=== PATIENT | female | born 1955 | race African-American/Black ===

== ENCOUNTER 2017-03-07 15:38 | Inpatient (IN) ==
[2017-03-07 17:02] LABS: Basophils % 0.4 % (0.0-0.8); Eosinophils # 0.3 10*3/uL (0.0-0.87); Eosinophils % 2.7 % (0.00-10.9); Hematocrit 43.4 VOL% (35.7-47.0); Hemoglobin 13.2 GM/DL (12.0-16.0); Immature Granulocytes % 0.4 %; Immature Granulocytes Absolute 0.04 #; Lymphocytes # 2.7 10*3/uL (1.4-4.0); Mean Corpuscular HGB Conc 30.4 GM/DL (32-36); Mean Corpuscular Hemoglobin 27 PG (27-34); Mean Corpuscular Volume 89.7 FL (87-102); Mean Platelet Volume 9.1 FL (9.6-12.0); Monocytes # 0.7 10*3/uL (0.11-0.8); Monocytes % 7.4 % (1.7-12.7); NRBC # 0.02 10*3/uL; Neutrophils # 6.1 10*3/uL (1.4-7.4); Neutrophils % 62.1 % (38.7-73.9); Platelet Count 225 T/CUMM (130-400); Red Blood Count 4.84 MC/CUMM (3.8-5.5); Red Cell Distribution Width 15.9 % (9.3-17.3); White Blood Count 9.9 T/CUMM (4-12)
[2017-03-07 17:32] LABS: Alanine Aminotransferase 18 U/L (13-56); Albumin 3.3 G/DL (3.4-5.0); Alkaline Phosphatase 66 U/L (45-117); Aspartate Amino Transferase 16 U/L (0-37); Bilirubin,Total < 0.39 MG/DL (0.2-1.0); Blood Urea Nitrogen 13 MG/DL (7-18); Calcium 8.9 MG/DL (8.5-10.1); Free T4 (Free Thyroxine) 0.89 NG/DL (0.76-1.46); Glucose 102 MG/DL (74-106); Magnesium 2.3 MG/DL (1.8-2.4); Potassium 3.9 MMOL/L (3.5-5.1); Sodium 143 MMOL/L (136-145); Total Protein 7.8 G/DL (6.4-8.3); Troponin I Only 0.024 NG/ML (0.00-0.045)
[2017-03-07] MEDS ORDERED: FUROSEMIDE 40 MG/4 ML VIAL IV STA (17:43)
[2017-03-07] MEDS ORDERED: FUROSEMIDE 40 MG/4 ML VIAL ONE (18:42)
[2017-03-07] MEDS ORDERED: FUROSEMIDE 20 MG/2 ML VIAL ONE (18:42)
[2017-03-07 18:48] LABS: Apearance,Urine CLEAR (Clear); Bacteria,Urine Occasional /HPF (Few); Bilirubin,Urine Negative (Negative); Blood, Urine Negative (Negative); Glucose,Urine (UA) Negative (Negative); Ketones,Urine Negative (Negative); Mucus,Urine Occasional /LPF (Occasional); Nitrite,Urine Negative (Negative); Protein,Urine 100 MG/DL; RBC,Urine <1 /HPF (0-4); Urine Color Yellow (Yellow); Urine Specific Gravity 1.015 (1.001-1.035); WBC,Urine 1 /HPF (0-6)
[2017-03-07 18:53] LABS: ABG HCO3 38.1 MMOL/L (20-26); ABG Oxygen Saturation 88.3 % (95-100); ABG PH 7.318 (7.35-7.45); ABG PO2 57.9 MM HG (80-95); ABG TCO2 40.4 MMOL/L (23-27); Allen Test Positive
[2017-03-07] MEDS ORDERED: hydrALAZINE 20 MG/1 ML VIAL IV PRN (19:05)
[2017-03-07] MEDS ORDERED: GLUCAGON 1 MG VIAL IM PRN (19:12)
[2017-03-07] MEDS ORDERED: DEXTROSE 50% 25 GM/50 ML VIAL IV PRN (19:12)
[2017-03-07] MEDS: LORazepam 2 MG/1 ML VIAL IV PRN (20:05)
[2017-03-07] MEDS: INSULIN REGULAR 100 UNIT/ML SUBCUT SCH (20:41)
[2017-03-07] MEDS: ENOXAPARIN 40 MG/0.4 ML SYRINGE SUBCUT SCH (20:41)
[2017-03-08] MEDS: ALBUTEROL/IPRATROPIUM 3 ML NEB RESP TX SCH ×4 (01:10→19:28)
[2017-03-08 02:49] LABS: Allen Test Positive; Pt O2 Delivery Device BIPAP
[2017-03-08 02:56] LABS: ABG Base Excess 10.1 MMOL/L (-2.5-2.5); ABG HCO3 40.4 MMOL/L (20-26); ABG Oxygen Saturation 98.1 % (95-100); ABG PO2 120.8 MM HG (80-95); ABG TCO2 43.1 MMOL/L (23-27)
[2017-03-08 02:58] LABS: ABG PCO2 89.9 MM HG (35-48)
[2017-03-08] MEDS: LORazepam 2 MG/1 ML VIAL IV PRN ×3 (03:45→21:01)
[2017-03-08 08:11] LABS: Basophils % 0.4 % (0.0-0.8); Eosinophils # 0.3 10*3/uL (0.0-0.87); Eosinophils % 3.2 % (0.00-10.9); Hematocrit 40.8 VOL% (35.7-47.0); Hemoglobin 12.2 GM/DL (12.0-16.0); Immature Granulocytes % 0.2 %; Immature Granulocytes Absolute 0.02 #; Lymphocytes # 2.6 10*3/uL (1.4-4.0); Lymphocytes % 31.6 % (21.3-54.2); Mean Corpuscular HGB Conc 29.9 GM/DL (32-36); Mean Corpuscular Hemoglobin 27 PG (27-34); Mean Corpuscular Volume 90.5 FL (87-102); Mean Platelet Volume 9.4 FL (9.6-12.0); Monocytes # 0.7 10*3/uL (0.11-0.8); Monocytes % 8.7 % (1.7-12.7); Neutrophils # 4.6 10*3/uL (1.4-7.4); Neutrophils % 55.9 % (38.7-73.9); Platelet Count 199 T/CUMM (130-400); Red Blood Count 4.51 MC/CUMM (3.8-5.5); Red Cell Distribution Width 15.9 % (9.3-17.3); White Blood Count 8.2 T/CUMM (4-12)
[2017-03-08 08:50] LABS: Albumin 3.3 G/DL (3.4-5.0); Bilirubin,Total 0.5 MG/DL (0.2-1.0); Calcium 8.5 MG/DL (8.5-10.1); Magnesium 2.2 MG/DL (1.8-2.4); Osmolality,Calculated 288.7 MOS/KG (273-304); Phosphorous 3.1 MG/DL (2.5-4.9); Potassium 3.7 MMOL/L (3.5-5.1); Total Protein 7.1 G/DL (6.4-8.3)
[2017-03-08] MEDS: INSULIN REGULAR 100 UNIT/ML SUBCUT SCH ×4 (08:50→23:44)
[2017-03-08] MEDS: FUROSEMIDE 40 MG/4 ML VIAL IV SCH (09:05)
[2017-03-08] MEDS: methylPREDNISolone SOD SUC 40 MG/1 ML VIAL IV SCH ×2 (12:19→18:49)
[2017-03-08] MEDS: cloNIDine 0.2 MG/24 HR PATCH TRANSDERM SCH (15:15)
[2017-03-08] MEDS: PANTOPRAZOLE 40 MG VIAL IV SCH (15:16)
[2017-03-08] MEDS ORDERED: TRAVOPROST 0.004% OPH SOLN 2.5 ML BOTTLE BOTH EYES SCH (21:00)
[2017-03-08] MEDS: ENOXAPARIN 40 MG/0.4 ML SYRINGE SUBCUT SCH (21:02)
[2017-03-09] MEDS: ALBUTEROL/IPRATROPIUM 3 ML NEB RESP TX SCH ×4 (00:13→20:05)
[2017-03-09] MEDS: methylPREDNISolone SOD SUC 40 MG/1 ML VIAL IV SCH ×3 (03:33→18:18)
[2017-03-09] MEDS: INSULIN REGULAR 100 UNIT/ML SUBCUT SCH ×4 (05:40→20:22)
[2017-03-09 06:05] LABS: Basophils % 0.1 % (0.0-0.8); Hematocrit 42.1 VOL% (35.7-47.0); Hemoglobin 12.8 GM/DL (12.0-16.0); Immature Granulocytes % 0.7 %; Immature Granulocytes Absolute 0.05 #; Lymphocytes # 1.3 10*3/uL (1.4-4.0); Lymphocytes % 19.4 % (21.3-54.2); Mean Corpuscular HGB Conc 30.4 GM/DL (32-36); Mean Corpuscular Hemoglobin 27 PG (27-34); Mean Corpuscular Volume 89.4 FL (87-102); Mean Platelet Volume 10.9 FL (9.6-12.0); Monocytes # 0.2 10*3/uL (0.11-0.8); Monocytes % 2.6 % (1.7-12.7); Neutrophils # 5.3 10*3/uL (1.4-7.4); Neutrophils % 77.2 % (38.7-73.9); Platelet Count 175 T/CUMM (130-400); Red Blood Count 4.71 MC/CUMM (3.8-5.5); Red Cell Distribution Width 15.8 % (9.3-17.3); White Blood Count 6.9 T/CUMM (4-12)
[2017-03-09 06:09] LABS: Alanine Aminotransferase 17 U/L (13-56); Albumin 3.2 G/DL (3.4-5.0); Alkaline Phosphatase 61 U/L (45-117); Aspartate Amino Transferase 14 U/L (0-37); Bilirubin,Total < 0.39 MG/DL (0.2-1.0); Blood Urea Nitrogen 13 MG/DL (7-18); Calcium 8.9 MG/DL (8.5-10.1); Glucose 138 MG/DL (74-106); Magnesium 2.2 MG/DL (1.8-2.4); Osmolality,Calculated 287.8 MOS/KG (273-304); Phosphorous 2.4 MG/DL (2.5-4.9); Potassium 4.2 MMOL/L (3.5-5.1); Sodium 144 MMOL/L (136-145); Total Protein 7.1 G/DL (6.4-8.3)
[2017-03-09] MEDS: LEVOTHYROXINE 100 MCG VIAL IV SCH (06:14)
[2017-03-09] MEDS: PANTOPRAZOLE 40 MG VIAL IV SCH (08:15)
[2017-03-09] MEDS: FUROSEMIDE 40 MG/4 ML VIAL IV SCH (08:19)
[2017-03-09] MEDS ORDERED: BISACODYL 5 MG TABLET PO PRN (08:24)
[2017-03-09] MEDS ORDERED: PANTOPRAZOLE 40 MG TABLET PO SCH (09:00)
[2017-03-09] MEDS ORDERED: NON-FORMULARY MEDICATION (Levetiracetam [Keppra] 1,000 MG) PO SCH (09:00)
[2017-03-09] MEDS ORDERED: LEVOTHYROXINE 175 MCG TABLET PO SCH (09:00)
[2017-03-09] MEDS: FUROSEMIDE 40 MG TABLET PO SCH (09:50)
[2017-03-09] MEDS: amLODIPine 10 MG TABLET PO SCH (09:50)
[2017-03-09] MEDS: METOPROLOL TARTRATE 25 MG TABLET PO SCH (09:50)
[2017-03-09] MEDS: POLYETHYLENE GLYCOL POWDER 17 GM PACK PO SCH (09:50)
[2017-03-09] MEDS: PARoxetine 20 MG TABLET PO SCH (09:50)
[2017-03-09] MEDS: TRAVOPROST 0.004% OPH SOLN 2.5 ML BOTTLE BOTH EYES SCH (18:24)
[2017-03-09] MEDS: ENOXAPARIN 40 MG/0.4 ML SYRINGE SUBCUT SCH (20:22)
[2017-03-09] MEDS: HALOPERIDOL 5 MG/ML AMP IV SCH (22:22)
[2017-03-10] MEDS: IBUPROFEN 400 MG TABLET PO SCH ×4 (00:28→20:44)
[2017-03-10] MEDS: ALBUTEROL/IPRATROPIUM 3 ML NEB RESP TX SCH ×4 (00:58→20:51)
[2017-03-10] MEDS: methylPREDNISolone SOD SUC 40 MG/1 ML VIAL IV SCH ×3 (02:11→18:36)
[2017-03-10 04:48] LABS: ABG Base Excess 9.7 MMOL/L (-2.5-2.5); ABG HCO3 33.5 MMOL/L (20-26); ABG Oxygen Saturation 96.7 % (95-100); ABG PH 7.294 (7.35-7.45); ABG PO2 93.1 MM HG (80-95); Allen Test Positive
[2017-03-10 04:51] LABS: ABG PCO2 82.7 MM HG (35-48)
[2017-03-10 06:12] LABS: Basophils % 0.1 % (0.0-0.8); Hematocrit 41.9 VOL% (35.7-47.0); Hemoglobin 12.8 GM/DL (12.0-16.0); Immature Granulocytes % 0.5 %; Immature Granulocytes Absolute 0.05 #; Lymphocytes # 1.3 10*3/uL (1.4-4.0); Lymphocytes % 11.4 % (21.3-54.2); Mean Corpuscular HGB Conc 30.5 GM/DL (32-36); Mean Corpuscular Hemoglobin 27 PG (27-34); Mean Corpuscular Volume 89.3 FL (87-102); Mean Platelet Volume 9.9 FL (9.6-12.0); Monocytes # 0.3 10*3/uL (0.11-0.8); Neutrophils # 9.4 10*3/uL (1.4-7.4); Platelet Count 218 T/CUMM (130-400); Red Blood Count 4.69 MC/CUMM (3.8-5.5); Red Cell Distribution Width 15.9 % (9.3-17.3); White Blood Count 11.1 T/CUMM (4-12)
[2017-03-10] MEDS: LEVOTHYROXINE 100 MCG VIAL IV SCH (06:30)
[2017-03-10 06:58] LABS: Calcium 8.7 MG/DL (8.5-10.1); Magnesium 2.4 MG/DL (1.8-2.4); Osmolality,Calculated 289.3 MOS/KG (273-304); Potassium 4.5 MMOL/L (3.5-5.1)
[2017-03-10] MEDS: THEOPHYLLINE ER (24 HR) 400 MG TABLET PO SCH (09:52)
[2017-03-10] MEDS: amLODIPine 10 MG TABLET PO SCH (09:52)
[2017-03-10] MEDS: PARoxetine 20 MG TABLET PO SCH (09:52)
[2017-03-10] MEDS: METOPROLOL TARTRATE 25 MG TABLET PO SCH (09:52)
[2017-03-10] MEDS: FUROSEMIDE 40 MG TABLET PO SCH (09:53)
[2017-03-10] MEDS: PANTOPRAZOLE 40 MG VIAL IV SCH (09:56)
[2017-03-10] MEDS: FUROSEMIDE 40 MG/4 ML VIAL IV SCH (09:57)
[2017-03-10] MEDS: INSULIN REGULAR 100 UNIT/ML SUBCUT SCH ×4 (10:03→20:43)
[2017-03-10] MEDS: TRAVOPROST 0.004% OPH SOLN 2.5 ML BOTTLE BOTH EYES SCH (18:37)
[2017-03-10] MEDS: ENOXAPARIN 40 MG/0.4 ML SYRINGE SUBCUT SCH (20:43)
[2017-03-10] MEDS: HALOPERIDOL 5 MG/ML AMP IV SCH (20:43)
[2017-03-11] MEDS: ALBUTEROL/IPRATROPIUM 3 ML NEB RESP TX SCH ×4 (01:48→19:28)
[2017-03-11] MEDS: methylPREDNISolone SOD SUC 40 MG/1 ML VIAL IV SCH ×3 (02:59→21:09)
[2017-03-11 03:56] LABS: ABG Base Excess 10.2 MMOL/L (-2.5-2.5); ABG HCO3 33.9 MMOL/L (20-26); ABG Oxygen Saturation 94.3 % (95-100); ABG PH 7.291 (7.35-7.45); ABG PO2 78.9 MM HG (80-95); ABG TCO2 36.6 MMOL/L (23-27); Allen Test Positive; Pt O2 Delivery Device BIPAP
[2017-03-11 05:40] LABS: Calcium 9.1 MG/DL (8.5-10.1); Magnesium 2.6 MG/DL (1.8-2.4); Osmolality,Calculated 289.1 MOS/KG (273-304)
[2017-03-11] MEDS: LEVOTHYROXINE 100 MCG VIAL IV SCH (06:42)
[2017-03-11] MEDS: PANTOPRAZOLE 40 MG VIAL IV SCH (10:06)
[2017-03-11] MEDS: FUROSEMIDE 40 MG/4 ML VIAL IV SCH (10:07)
[2017-03-11] MEDS: IBUPROFEN 400 MG TABLET PO SCH ×3 (10:08→21:15)
[2017-03-11] MEDS: PARoxetine 20 MG TABLET PO SCH (10:08)
[2017-03-11] MEDS: THEOPHYLLINE ER (24 HR) 400 MG TABLET PO SCH (10:08)
[2017-03-11] MEDS: amLODIPine 10 MG TABLET PO SCH (10:08)
[2017-03-11] MEDS: METOPROLOL TARTRATE 25 MG TABLET PO SCH (10:08)
[2017-03-11] MEDS: INSULIN REGULAR 100 UNIT/ML SUBCUT SCH ×4 (10:09→21:14)
[2017-03-11] MEDS: FUROSEMIDE 40 MG TABLET PO SCH (10:09)
[2017-03-11] MEDS: PANTOPRAZOLE 40 MG TABLET PO SCH (11:44)
[2017-03-11] MEDS: POLYETHYLENE GLYCOL POWDER 17 GM PACK PO SCH (11:45)
[2017-03-11] MEDS: HALOPERIDOL 5 MG/ML AMP IV SCH (21:12)
[2017-03-11] MEDS: ENOXAPARIN 40 MG/0.4 ML SYRINGE SUBCUT SCH (21:15)
[2017-03-11] MEDS: TRAVOPROST 0.004% OPH SOLN 2.5 ML BOTTLE BOTH EYES SCH (23:26)
[2017-03-12] MEDS: ALBUTEROL/IPRATROPIUM 3 ML NEB RESP TX SCH ×4 (00:08→19:57)
[2017-03-12] MEDS: methylPREDNISolone SOD SUC 40 MG/1 ML VIAL IV SCH (03:27)
[2017-03-12] MEDS: LEVOTHYROXINE 100 MCG VIAL IV SCH (06:30)
[2017-03-12] MEDS: PANTOPRAZOLE 40 MG TABLET PO SCH (11:01)
[2017-03-12] MEDS: amLODIPine 10 MG TABLET PO SCH (11:01)
[2017-03-12] MEDS: THEOPHYLLINE ER (24 HR) 400 MG TABLET PO SCH (11:01)
[2017-03-12] MEDS: METOPROLOL TARTRATE 25 MG TABLET PO SCH (11:02)
[2017-03-12] MEDS: IBUPROFEN 400 MG TABLET PO SCH ×3 (11:02→21:37)
[2017-03-12] MEDS: FUROSEMIDE 40 MG/4 ML VIAL IV SCH (11:02)
[2017-03-12] MEDS: INSULIN REGULAR 100 UNIT/ML SUBCUT SCH ×4 (11:08→21:38)
[2017-03-12] MEDS: levETIRAcetam 500 MG TABLET PO SCH (21:36)
[2017-03-12] MEDS: acetaZOLAMIDE 250 MG TABLET PO SCH (21:37)
[2017-03-12] MEDS: ENOXAPARIN 40 MG/0.4 ML SYRINGE SUBCUT SCH (21:38)
[2017-03-12] MEDS: TRAVOPROST 0.004% OPH SOLN 2.5 ML BOTTLE BOTH EYES SCH (21:59)
[2017-03-13] MEDS: ALBUTEROL/IPRATROPIUM 3 ML NEB RESP TX SCH ×4 (00:01→20:29)
[2017-03-13] MEDS: methylPREDNISolone SOD SUC 40 MG/1 ML VIAL IV SCH ×2 (00:38→09:12)
[2017-03-13] MEDS: LEVOTHYROXINE 88 MCG TABLET PO SCH (05:47)
[2017-03-13] MEDS: INSULIN REGULAR 100 UNIT/ML SUBCUT SCH ×4 (09:10→21:13)
[2017-03-13] MEDS: amLODIPine 10 MG TABLET PO SCH (09:15)
[2017-03-13] MEDS: THEOPHYLLINE ER (24 HR) 400 MG TABLET PO SCH (09:15)
[2017-03-13] MEDS: levETIRAcetam 500 MG TABLET PO SCH ×2 (09:15→21:15)
[2017-03-13] MEDS: acetaZOLAMIDE 250 MG TABLET PO SCH ×2 (09:15→21:15)
[2017-03-13] MEDS: IBUPROFEN 400 MG TABLET PO SCH ×3 (09:16→21:15)
[2017-03-13] MEDS: FUROSEMIDE 40 MG TABLET PO SCH (09:16)
[2017-03-13] MEDS: METOPROLOL TARTRATE 25 MG TABLET PO SCH (09:16)
[2017-03-13] MEDS: POLYETHYLENE GLYCOL POWDER 17 GM PACK PO SCH (09:19)
[2017-03-13] MEDS: PANTOPRAZOLE 40 MG TABLET PO SCH (09:19)
[2017-03-13] MEDS: TRAVOPROST 0.004% OPH SOLN 2.5 ML BOTTLE BOTH EYES SCH (21:14)
[2017-03-13] MEDS: ENOXAPARIN 40 MG/0.4 ML SYRINGE SUBCUT SCH (21:16)
[2017-03-14] MEDS: ALBUTEROL/IPRATROPIUM 3 ML NEB RESP TX SCH ×4 (00:14→18:59)
[2017-03-14] MEDS: LEVOTHYROXINE 88 MCG TABLET PO SCH (05:58)
[2017-03-14] MEDS: INSULIN REGULAR 100 UNIT/ML SUBCUT SCH ×4 (08:47→21:54)
[2017-03-14] MEDS: methylPREDNISolone SOD SUC 40 MG/1 ML VIAL IV SCH (08:48)
[2017-03-14] MEDS: levETIRAcetam 500 MG TABLET PO SCH ×2 (08:49→20:34)
[2017-03-14] MEDS: IBUPROFEN 400 MG TABLET PO SCH ×3 (08:49→20:34)
[2017-03-14] MEDS: METOPROLOL TARTRATE 25 MG TABLET PO SCH (08:49)
[2017-03-14] MEDS: FUROSEMIDE 40 MG TABLET PO SCH (08:49)
[2017-03-14] MEDS: acetaZOLAMIDE 250 MG TABLET PO SCH ×2 (08:49→20:34)
[2017-03-14] MEDS: amLODIPine 10 MG TABLET PO SCH (08:49)
[2017-03-14] MEDS: THEOPHYLLINE ER (24 HR) 400 MG TABLET PO SCH (08:49)
[2017-03-14] MEDS: PANTOPRAZOLE 40 MG TABLET PO SCH (08:50)
[2017-03-14 09:05] LABS: Basophils % 0.1 % (0.0-0.8); Eosinophils # 0.1 10*3/uL (0.0-0.87); Eosinophils % 0.7 % (0.00-10.9); Hematocrit 39.7 VOL% (35.7-47.0); Hemoglobin 12.2 GM/DL (12.0-16.0); Immature Granulocytes % 0.5 %; Immature Granulocytes Absolute 0.04 #; Lymphocytes # 3.4 10*3/uL (1.4-4.0); Lymphocytes % 38.6 % (21.3-54.2); Mean Corpuscular HGB Conc 30.7 GM/DL (32-36); Mean Corpuscular Hemoglobin 27 PG (27-34); Mean Corpuscular Volume 88.6 FL (87-102); Mean Platelet Volume 10.8 FL (9.6-12.0); Monocytes # 0.9 10*3/uL (0.11-0.8); Monocytes % 9.8 % (1.7-12.7); Neutrophils # 4.4 10*3/uL (1.4-7.4); Neutrophils % 50.3 % (38.7-73.9); Platelet Count 171 T/CUMM (130-400); Red Blood Count 4.48 MC/CUMM (3.8-5.5); Red Cell Distribution Width 15.9 % (9.3-17.3); White Blood Count 8.8 T/CUMM (4-12)
[2017-03-14 09:36] LABS: Potassium 3.7 MMOL/L (3.5-5.1)
[2017-03-14] MEDS: TRAVOPROST 0.004% OPH SOLN 2.5 ML BOTTLE BOTH EYES SCH (18:22)
[2017-03-14] MEDS: ENOXAPARIN 40 MG/0.4 ML SYRINGE SUBCUT SCH (20:33)
[2017-03-15] MEDS: LEVOTHYROXINE 88 MCG TABLET PO SCH (07:05)
[2017-03-15] MEDS: ALBUTEROL/IPRATROPIUM 3 ML NEB RESP TX SCH ×4 (07:57→19:50)
[2017-03-15] MEDS: INSULIN REGULAR 100 UNIT/ML SUBCUT SCH ×4 (09:17→21:50)
[2017-03-15] MEDS: methylPREDNISolone SOD SUC 40 MG/1 ML VIAL IV SCH (09:22)
[2017-03-15] MEDS: POLYETHYLENE GLYCOL POWDER 17 GM PACK PO SCH (09:22)
[2017-03-15] MEDS: amLODIPine 10 MG TABLET PO SCH (09:22)
[2017-03-15] MEDS: THEOPHYLLINE ER (24 HR) 400 MG TABLET PO SCH (09:22)
[2017-03-15] MEDS: levETIRAcetam 500 MG TABLET PO SCH ×2 (09:22→21:40)
[2017-03-15] MEDS: acetaZOLAMIDE 250 MG TABLET PO SCH ×2 (09:23→21:40)
[2017-03-15] MEDS: PANTOPRAZOLE 40 MG TABLET PO SCH (09:23)
[2017-03-15] MEDS: IBUPROFEN 400 MG TABLET PO SCH ×3 (09:23→21:40)
[2017-03-15] MEDS: METOPROLOL TARTRATE 25 MG TABLET PO SCH (09:23)
[2017-03-15] MEDS: FUROSEMIDE 40 MG TABLET PO SCH (09:23)
[2017-03-15] MEDS: cloNIDine 0.2 MG/24 HR PATCH TRANSDERM SCH (09:25)
[2017-03-15] MEDS: TRAVOPROST 0.004% OPH SOLN 2.5 ML BOTTLE BOTH EYES SCH (18:00)
[2017-03-15] MEDS: ENOXAPARIN 40 MG/0.4 ML SYRINGE SUBCUT SCH (21:50)
[2017-03-16] MEDS: ALBUTEROL/IPRATROPIUM 3 ML NEB RESP TX SCH ×4 (01:28→20:32)
[2017-03-16] MEDS: LEVOTHYROXINE 88 MCG TABLET PO SCH (06:15)
[2017-03-16] MEDS: levETIRAcetam 500 MG TABLET PO SCH ×2 (08:40→20:06)
[2017-03-16] MEDS: THEOPHYLLINE ER (24 HR) 400 MG TABLET PO SCH (08:40)
[2017-03-16] MEDS: predniSONE 20 MG TABLET PO SCH (08:40)
[2017-03-16] MEDS: FUROSEMIDE 40 MG TABLET PO SCH (08:40)
[2017-03-16] MEDS: acetaZOLAMIDE 250 MG TABLET PO SCH ×2 (08:41→20:07)
[2017-03-16] MEDS: IBUPROFEN 400 MG TABLET PO SCH ×3 (08:41→20:06)
[2017-03-16] MEDS: INSULIN REGULAR 100 UNIT/ML SUBCUT SCH ×4 (08:41→21:46)
[2017-03-16] MEDS: amLODIPine 10 MG TABLET PO SCH (08:41)
[2017-03-16] MEDS: PANTOPRAZOLE 40 MG TABLET PO SCH (08:41)
[2017-03-16] MEDS: METOPROLOL TARTRATE 25 MG TABLET PO SCH (08:41)
[2017-03-16] MEDS: ENOXAPARIN 40 MG/0.4 ML SYRINGE SUBCUT SCH (20:06)
[2017-03-17] MEDS: ALBUTEROL/IPRATROPIUM 3 ML NEB RESP TX SCH ×3 (01:45→13:20)
[2017-03-17] MEDS: LEVOTHYROXINE 88 MCG TABLET PO SCH (06:13)
[2017-03-17] MEDS: TRAVOPROST 0.004% OPH SOLN 2.5 ML BOTTLE BOTH EYES SCH (08:37)
[2017-03-17] MEDS: POLYETHYLENE GLYCOL POWDER 17 GM PACK PO SCH (08:39)
[2017-03-17] MEDS: levETIRAcetam 500 MG TABLET PO SCH (08:40)
[2017-03-17] MEDS: THEOPHYLLINE ER (24 HR) 400 MG TABLET PO SCH (08:40)
[2017-03-17] MEDS: METOPROLOL TARTRATE 25 MG TABLET PO SCH (08:40)
[2017-03-17] MEDS: PANTOPRAZOLE 40 MG TABLET PO SCH (08:40)
[2017-03-17] MEDS: acetaZOLAMIDE 250 MG TABLET PO SCH (08:40)
[2017-03-17] MEDS: FUROSEMIDE 40 MG TABLET PO SCH (08:40)
[2017-03-17] MEDS: predniSONE 20 MG TABLET PO SCH (08:40)
[2017-03-17] MEDS: IBUPROFEN 400 MG TABLET PO SCH (08:40)
[2017-03-17] MEDS: amLODIPine 10 MG TABLET PO SCH (08:40)
[2017-03-17] MEDS: INSULIN REGULAR 100 UNIT/ML SUBCUT SCH ×2 (08:56→12:42)
[2017-03-17 12:08] VITALS: BP 126/62
[2017-03-17 12:14] LABS: Calcium 9.2 MG/DL (8.5-10.1); Osmolality,Calculated 293.8 MOS/KG (273-304); Potassium 4.2 MMOL/L (3.5-5.1)
[2017-03-17 12:22] LABS: Basophils % 0.2 % (0.0-0.8); Eosinophils # 0.2 10*3/uL (0.0-0.87); Eosinophils % 1.3 % (0.00-10.9); Hematocrit 39.7 VOL% (35.7-47.0); Hemoglobin 12.3 GM/DL (12.0-16.0); Immature Granulocytes % 0.7 %; Immature Granulocytes Absolute 0.08 #; Lymphocytes # 2.2 10*3/uL (1.4-4.0); Lymphocytes % 18.3 % (21.3-54.2); Mean Corpuscular Hemoglobin 27 PG (27-34); Mean Corpuscular Volume 88.4 FL (87-102); Mean Platelet Volume 10.7 FL (9.6-12.0); Monocytes # 1.2 10*3/uL (0.11-0.8); Monocytes % 9.9 % (1.7-12.7); Neutrophils # 8.5 10*3/uL (1.4-7.4); Neutrophils % 69.6 % (38.7-73.9); Platelet Count 154 T/CUMM (130-400); Red Blood Count 4.49 MC/CUMM (3.8-5.5); White Blood Count 12.2 T/CUMM (4-12)
== END 2017-03-17 15:01 | disposition home or self-care (01) | DRG 189 ==
LOC: EDUNIT# → EDBD → N.ED 15:38 → N.EDINP 18:30 → SUATTDRO 18:30 → N.CC 19:40 → N.2E 03-11 16:32
PROVIDERS: ADMIT Hospitalist; ATTEND Internal Medicine

== ENCOUNTER 2017-04-05 16:12 | Inpatient (IN) ==
[2017-04-05] MEDS ORDERED: FUROSEMIDE 100 MG/10 ML VIAL IV STA (17:40)
[2017-04-05] MEDS ORDERED: FUROSEMIDE 40 MG/4 ML VIAL ONE (17:54)
[2017-04-05 18:12] LABS: ABG Base Excess 9.3 MMOL/L (-2.5-2.5); ABG Oxygen Saturation 97.7 % (95-100); ABG PH 7.253 (7.35-7.45); ABG TCO2 36.9 MMOL/L (23-27)
[2017-04-05 18:14] LABS: ABG PCO2 92.2 MM HG (35-48)
[2017-04-05 18:24] LABS: Basophils % 0.6 % (0.0-0.8); Eosinophils # 0.3 10*3/uL (0.0-0.87); Eosinophils % 5.5 % (0.00-10.9); Hematocrit 40.8 VOL% (35.7-47.0); Immature Granulocytes % 0.2 %; Immature Granulocytes Absolute 0.01 #; Lymphocytes # 1.8 10*3/uL (1.4-4.0); Lymphocytes % 35.3 % (21.3-54.2); Mean Corpuscular HGB Conc 29.4 GM/DL (32-36); Mean Corpuscular Hemoglobin 28 PG (27-34); Mean Corpuscular Volume 94.7 FL (87-102); Monocytes # 0.6 10*3/uL (0.11-0.8); Monocytes % 10.7 % (1.7-12.7); Neutrophils # 2.5 10*3/uL (1.4-7.4); Neutrophils % 47.7 % (38.7-73.9); Platelet Count 134 T/CUMM (130-400); Red Blood Count 4.31 MC/CUMM (3.8-5.5); White Blood Count 5.1 T/CUMM (4-12)
[2017-04-05 18:35] LABS: Albumin 3.2 G/DL (3.4-5.0); Bilirubin,Total 0.4 MG/DL (0.2-1.0); Calcium 9.1 MG/DL (8.5-10.1); Magnesium 2.1 MG/DL (1.8-2.4); Osmolality,Calculated 285.8 MOS/KG (273-304); Potassium 3.6 MMOL/L (3.5-5.1); Total Protein 6.6 G/DL (6.4-8.3)
[2017-04-05 18:49] LABS: Apearance,Urine CLOUDY (Clear); Bacteria,Urine Moderate /HPF (Few); Bilirubin,Urine Negative (Negative); Blood, Urine Large mg/dL (Negative); Glucose,Urine (UA) Negative (Negative); Ketones,Urine Negative (Negative); Mucus,Urine Occasional /LPF (Occasional); Nitrite,Urine Negative (Negative); Protein,Urine Negative; RBC,Urine 18 /HPF (0-4); Squamous Epithelial Cell,Urine Few /HPF (0-10); Urine Color Yellow (Yellow); Urine Specific Gravity 1.006 (1.001-1.035); Urine Urobilinogen < 2.0 EU/DL (0.2-1.0); WBC,Urine 20 /HPF (0-6)
[2017-04-05] MEDS ORDERED: ALBUTEROL 2.5 MG/3 ML NEB RESP TX PRN (19:54)
[2017-04-05] MEDS ORDERED: ONDANSETRON 4 MG/2 ML VIAL IV PRN (19:54)
[2017-04-05] MEDS ORDERED: ACETAMINOPHEN 325 MG TABLET PO PRN (19:54)
[2017-04-05] MEDS ORDERED: DEXTROSE 50% 25 GM/50 ML VIAL IV PRN (19:54)
[2017-04-05] MEDS ORDERED: GLUCAGON 1 MG VIAL IM PRN (19:54)
[2017-04-05] MEDS ORDERED: AZTREONAM 1,000 MG in SODIUM CHLORIDE 0.9% 100 ML IV SCH (20:30)
[2017-04-05] MEDS: PANTOPRAZOLE 40 MG VIAL IV SCH (21:51)
[2017-04-05] MEDS: INSULIN LISPRO 100 UNIT/ML SUBCUT SCH (21:51)
[2017-04-05] MEDS: ENOXAPARIN 40 MG/0.4 ML SYRINGE SUBCUT SCH (21:51)
[2017-04-05] MEDS: cefTRIAXone 1,000 MG in SYRINGE 1 EACH IV SCH (21:52)
[2017-04-06 00:37] LABS: ABG HCO3 34.7 MMOL/L (20-26); ABG Oxygen Saturation 96.4 % (95-100); ABG PH 7.347 (7.35-7.45); ABG PO2 80.4 MM HG (80-95); ABG TCO2 35.7 MMOL/L (23-27); Allen Test Positive; Pt O2 Delivery Device BIPAP
[2017-04-06 00:38] LABS: ABG PCO2 72.8 MM HG (35-48)
[2017-04-06] MEDS: ALBUTEROL/IPRATROPIUM 3 ML NEB RESP TX SCH ×4 (01:37→20:13)
[2017-04-06] MEDS: LORazepam 2 MG/1 ML VIAL IV PRN ×3 (01:49→14:05)
[2017-04-06 04:08] LABS: Basophils % 0.4 % (0.0-0.8); Eosinophils # 0.3 10*3/uL (0.0-0.87); Eosinophils % 5.5 % (0.00-10.9); Hematocrit 39.1 VOL% (35.7-47.0); Hemoglobin 11.6 GM/DL (12.0-16.0); Immature Granulocytes % 0.2 %; Immature Granulocytes Absolute 0.01 #; Lymphocytes # 1.9 10*3/uL (1.4-4.0); Lymphocytes % 35.1 % (21.3-54.2); Mean Corpuscular HGB Conc 29.7 GM/DL (32-36); Mean Corpuscular Hemoglobin 27 PG (27-34); Mean Corpuscular Volume 92.2 FL (87-102); Mean Platelet Volume 9.9 FL (9.6-12.0); Monocytes # 0.5 10*3/uL (0.11-0.8); Monocytes % 9.9 % (1.7-12.7); Neutrophils # 2.7 10*3/uL (1.4-7.4); Neutrophils % 48.9 % (38.7-73.9); Platelet Count 128 T/CUMM (130-400); Red Blood Count 4.24 MC/CUMM (3.8-5.5); Red Cell Distribution Width 17.2 % (9.3-17.3); White Blood Count 5.5 T/CUMM (4-12)
[2017-04-06 04:39] LABS: Bilirubin,Total 0.9 MG/DL (0.2-1.0); Calcium 8.9 MG/DL (8.5-10.1); Osmolality,Calculated 286.7 MOS/KG (273-304); Potassium 3.3 MMOL/L (3.5-5.1); Total Protein 6.2 G/DL (6.4-8.3)
[2017-04-06] MEDS: INSULIN LISPRO 100 UNIT/ML SUBCUT SCH ×4 (07:26→20:55)
[2017-04-06] MEDS: LEVOTHYROXINE 100 MCG TABLET PO SCH (09:32)
[2017-04-06] MEDS: ENOXAPARIN 40 MG/0.4 ML SYRINGE SUBCUT SCH (19:44)
[2017-04-06] MEDS: PANTOPRAZOLE 40 MG VIAL IV SCH (19:44)
[2017-04-06] MEDS: cefTRIAXone 1,000 MG in SYRINGE 1 EACH IV SCH (21:11)
[2017-04-07] MEDS: ALBUTEROL/IPRATROPIUM 3 ML NEB RESP TX SCH ×4 (00:25→19:45)
[2017-04-07 04:05] LABS: ABG Base Excess 10.2 MMOL/L (-2.5-2.5); ABG Oxygen Saturation 97.4 % (95-100); ABG PCO2 67.1 MM HG (35-48); ABG PH 7.366 (7.35-7.45); ABG PO2 95.3 MM HG (80-95); ABG TCO2 34.3 MMOL/L (23-27)
[2017-04-07] MEDS: LEVOTHYROXINE 100 MCG TABLET PO SCH (05:49)
[2017-04-07 06:15] LABS: Basophils % 0.5 % (0.0-0.8); Eosinophils # 0.3 10*3/uL (0.0-0.87); Eosinophils % 4.8 % (0.00-10.9); Hematocrit 38.2 VOL% (35.7-47.0); Hemoglobin 11.7 GM/DL (12.0-16.0); Immature Granulocytes % 0.5 %; Immature Granulocytes Absolute 0.03 #; Lymphocytes # 2.1 10*3/uL (1.4-4.0); Lymphocytes % 37.6 % (21.3-54.2); Mean Corpuscular HGB Conc 30.6 GM/DL (32-36); Mean Corpuscular Hemoglobin 28 PG (27-34); Mean Corpuscular Volume 91.2 FL (87-102); Monocytes # 0.6 10*3/uL (0.11-0.8); Monocytes % 10.4 % (1.7-12.7); Neutrophils # 2.6 10*3/uL (1.4-7.4); Neutrophils % 46.2 % (38.7-73.9); Platelet Count 144 T/CUMM (130-400); Red Blood Count 4.19 MC/CUMM (3.8-5.5); White Blood Count 5.7 T/CUMM (4-12)
[2017-04-07 06:47] LABS: Macrocytosis Slight; Platelet Estimate Normal
[2017-04-07 06:54] LABS: Osmolality,Calculated 285.1 MOS/KG (273-304); Potassium 3.3 MMOL/L (3.5-5.1)
[2017-04-07] MEDS: INSULIN LISPRO 100 UNIT/ML SUBCUT SCH ×4 (08:33→20:17)
[2017-04-07] MEDS: THEOPHYLLINE ER (24 HR) 400 MG CAPSULE PO SCH (09:46)
[2017-04-07] MEDS: methylPREDNISolone SOD SUC 40 MG/1 ML VIAL IV SCH ×2 (09:46→16:21)
[2017-04-07] MEDS: SODIUM CHLORIDE 0.9% 1,000 ML IV SCH (14:30)
[2017-04-07] MEDS: LORazepam 2 MG/1 ML VIAL IV PRN ×2 (15:43→20:52)
[2017-04-07] MEDS: ENOXAPARIN 40 MG/0.4 ML SYRINGE SUBCUT SCH (20:15)
[2017-04-07] MEDS: PANTOPRAZOLE 40 MG VIAL IV SCH (20:17)
[2017-04-07] MEDS: cefTRIAXone 1,000 MG in SYRINGE 1 EACH IV SCH (21:05)
[2017-04-08] MEDS: methylPREDNISolone SOD SUC 40 MG/1 ML VIAL IV SCH ×3 (00:21→17:01)
[2017-04-08] MEDS: ALBUTEROL/IPRATROPIUM 3 ML NEB RESP TX SCH ×4 (00:49→19:44)
[2017-04-08 04:33] LABS: ABG Base Excess 7.6 MMOL/L (-2.5-2.5); ABG HCO3 34.5 MMOL/L (20-26); ABG Oxygen Saturation 96.9 % (95-100); ABG PCO2 59.2 MM HG (35-48); ABG PH 7.383 (7.35-7.45); ABG PO2 94.3 MM HG (80-95); ABG TCO2 36.3 MMOL/L (23-27)
[2017-04-08] MEDS: SODIUM CHLORIDE 0.9% 1,000 ML IV SCH (05:14)
[2017-04-08] MEDS: LEVOTHYROXINE 100 MCG TABLET PO SCH (06:08)
[2017-04-08] MEDS: INSULIN LISPRO 100 UNIT/ML SUBCUT SCH ×4 (08:47→20:18)
[2017-04-08] MEDS: THEOPHYLLINE ER (24 HR) 400 MG CAPSULE PO SCH (08:48)
[2017-04-08] MEDS: LORazepam 2 MG/1 ML VIAL IV PRN (10:44)
[2017-04-08] MEDS: levETIRAcetam 500 MG TABLET PO SCH ×2 (10:44→20:18)
[2017-04-08] MEDS: acetaZOLAMIDE 250 MG TABLET PO SCH (20:18)
[2017-04-08] MEDS: PANTOPRAZOLE 40 MG VIAL IV SCH (20:18)
[2017-04-08] MEDS: ENOXAPARIN 40 MG/0.4 ML SYRINGE SUBCUT SCH (20:18)
[2017-04-08] MEDS: cefTRIAXone 1,000 MG in SYRINGE 1 EACH IV SCH (21:35)
[2017-04-09] MEDS: methylPREDNISolone SOD SUC 40 MG/1 ML VIAL IV SCH ×2 (00:18→08:20)
[2017-04-09] MEDS: ALBUTEROL/IPRATROPIUM 3 ML NEB RESP TX SCH ×2 (00:46→07:16)
[2017-04-09] MEDS: LEVOTHYROXINE 100 MCG TABLET PO SCH (05:37)
[2017-04-09 05:45] LABS: Hematocrit 37.2 VOL% (35.7-47.0); Hemoglobin 11.6 GM/DL (12.0-16.0); Immature Granulocytes % 0.5 %; Immature Granulocytes Absolute 0.04 #; Lymphocytes # 1.2 10*3/uL (1.4-4.0); Lymphocytes % 15.9 % (21.3-54.2); Mean Corpuscular HGB Conc 31.2 GM/DL (32-36); Mean Corpuscular Hemoglobin 28 PG (27-34); Mean Corpuscular Volume 90.1 FL (87-102); Mean Platelet Volume 10.5 FL (9.6-12.0); Monocytes # 0.6 10*3/uL (0.11-0.8); Monocytes % 7.8 % (1.7-12.7); Neutrophils # 5.8 10*3/uL (1.4-7.4); Neutrophils % 75.8 % (38.7-73.9); Platelet Count 160 T/CUMM (130-400); Red Blood Count 4.13 MC/CUMM (3.8-5.5); White Blood Count 7.6 T/CUMM (4-12)
[2017-04-09 06:11] LABS: Lymphocytes 11 % (20-55); Platelet Estimate Normal; Segmented Neutrophils 80 % (50-85); Total Cells Counted 100
[2017-04-09 06:12] LABS: Giant Platelets Few; Hypochromasia 1+; Macrocytosis Slight
[2017-04-09 06:20] LABS: Magnesium 2.4 MG/DL (1.8-2.4)
[2017-04-09 06:25] LABS: Albumin 3.3 G/DL (3.4-5.0); Bilirubin,Total 0.9 MG/DL (0.2-1.0); Calcium 9.5 MG/DL (8.5-10.1); Osmolality,Calculated 289.8 MOS/KG (273-304); Potassium 3.6 MMOL/L (3.5-5.1); Total Protein 6.7 G/DL (6.4-8.3)
[2017-04-09] MEDS ORDERED: LEVOTHYROXINE 88 MCG TABLET PO SCH (06:30)
[2017-04-09] MEDS: levETIRAcetam 500 MG TABLET PO SCH (08:08)
[2017-04-09] MEDS: acetaZOLAMIDE 250 MG TABLET PO SCH (08:08)
[2017-04-09] MEDS: THEOPHYLLINE ER (24 HR) 400 MG CAPSULE PO SCH (08:08)
[2017-04-09] MEDS: INSULIN LISPRO 100 UNIT/ML SUBCUT SCH (08:09)
[2017-04-09] MEDS: LORazepam 2 MG/1 ML VIAL IV PRN (08:15)
[2017-04-09] MEDS ORDERED: METOPROLOL TARTRATE 25 MG TABLET PO SCH (09:00)
[2017-04-09] MEDS ORDERED: FUROSEMIDE 40 MG TABLET PO SCH (09:00)
[2017-04-09] MEDS ORDERED: PARoxetine 20 MG TABLET PO SCH (09:00)
[2017-04-09] MEDS ORDERED: PANTOPRAZOLE 40 MG TABLET PO SCH (09:00)
[2017-04-09] MEDS ORDERED: THEOPHYLLINE ER (24 HR) 400 MG TABLET PO SCH (09:00)
[2017-04-09] MEDS ORDERED: amLODIPine 10 MG TABLET PO SCH (09:00)
[2017-04-09 09:22] VITALS: BP 131/65
[2017-04-15] MEDS ORDERED: cloNIDine 0.2 MG/24 HR PATCH TRANSDERM SCH (09:00)
== END 2017-04-09 11:30 | DRG 189 ==
LOC: EDUNIT# → EDBD → N.ED 16:12 → SUATTDRO 19:53 → N.EDINP 19:53 → N.CC 20:46
PROVIDERS: ADMIT Internal Medicine; ATTEND Pediatrics

== ENCOUNTER 2017-05-22 17:08 | Inpatient (IN) ==
[2017-05-22] MEDS ORDERED: ASPIRIN 325 MG TABLET PO STA (17:47)
[2017-05-22] MEDS ORDERED: methylPREDNISolone SOD SUC 125 MG/2 ML VIAL IV STA (17:47)
[2017-05-22] MEDS ORDERED: ONDANSETRON 4 MG/2 ML VIAL IV STA (17:47)
[2017-05-22] MEDS ORDERED: FUROSEMIDE 100 MG/10 ML VIAL IV STA (17:47)
[2017-05-22] MEDS ORDERED: ALBUTEROL 2.5 MG/3 ML NEB RESP TX SCH (18:00)
[2017-05-22 18:14] LABS: Basophils % 0.3 % (0.0-0.8); Eosinophils # 0.1 10*3/uL (0.0-0.87); Eosinophils % 1.5 % (0.00-10.9); Hemoglobin 12.6 GM/DL (12.0-16.0); Immature Granulocytes % 0.4 %; Immature Granulocytes Absolute 0.04 #; Lymphocytes # 2.5 10*3/uL (1.4-4.0); Lymphocytes % 27.6 % (21.3-54.2); Mean Corpuscular HGB Conc 29.4 GM/DL (32-36); Mean Corpuscular Hemoglobin 28 PG (27-34); Monocytes # 0.7 10*3/uL (0.11-0.8); Monocytes % 7.7 % (1.7-12.7); Neutrophils # 5.6 10*3/uL (1.4-7.4); Neutrophils % 62.5 % (38.7-73.9); Platelet Count 161 T/CUMM (130-400); Red Blood Count 4.47 MC/CUMM (3.8-5.5); Red Cell Distribution Width 16.5 % (9.3-17.3); White Blood Count 9.1 T/CUMM (4-12)
[2017-05-22 18:15] LABS: Hematocrit 42.9 VOL% (35.7-47.0)
[2017-05-22 18:22] LABS: PT Patient Result 10.5 SECS
[2017-05-22 18:28] LABS: ABG Base Excess 2.9 MMOL/L (-2.5-2.5); ABG HCO3 35.1 MMOL/L (20-26); ABG Oxygen Saturation 92.8 % (95-100); ABG PO2 79.2 MM HG (80-95); ABG TCO2 38.3 MMOL/L (23-27)
[2017-05-22 18:30] LABS: ABG PCO2 102.9 MM HG (35-48); ABG PH 7.151 (7.35-7.45)
[2017-05-22 18:36] LABS: Alanine Aminotransferase 13 U/L (13-56); Albumin 3.7 G/DL (3.4-5.0); Alkaline Phosphatase 73 U/L (45-117); Aspartate Amino Transferase 14 U/L (0-37); Bilirubin,Total < 0.39 MG/DL (0.2-1.0); Blood Urea Nitrogen 14 MG/DL (7-18); Calcium 9.2 MG/DL (8.5-10.1); Glucose 121 MG/DL (74-106); Osmolality,Calculated 282.3 MOS/KG (273-304); Potassium 3.6 MMOL/L (3.5-5.1); Sodium 141 MMOL/L (136-145); Total Protein 7.2 G/DL (6.4-8.3); Troponin I Only 0.021 NG/ML (0.00-0.045)
[2017-05-22] MEDS ORDERED: cefTRIAXone 1,000 MG in SODIUM CHLORIDE 0.9% 100 ML IV STA (18:42)
[2017-05-22] MEDS ORDERED: methylPREDNISolone SOD SUC 125 MG/2 ML VIAL ONE (19:19)
[2017-05-22] MEDS ORDERED: cefTRIAXone 1,000 MG VIAL ONE (19:19)
[2017-05-22] MEDS ORDERED: FUROSEMIDE 40 MG/4 ML VIAL ONE (19:19)
[2017-05-22] MEDS ORDERED: FUROSEMIDE 20 MG/2 ML VIAL ONE (19:19)
[2017-05-22] MEDS ORDERED: ONDANSETRON 4 MG/2 ML VIAL ONE (19:19)
[2017-05-22 19:52] LABS: Apearance,Urine Slightly Hazy (Clear); Bilirubin,Urine Negative (Negative); Blood, Urine Negative (Negative); Glucose,Urine (UA) Negative (Negative); Hyaline Casts,Urine 3 /LPF (0-3); Ketones,Urine Negative (Negative); Mucus,Urine Occasional /LPF (Occasional); Nitrite,Urine Negative (Negative); Protein,Urine 30 MG/DL; RBC,Urine 3 /HPF (0-4); Squamous Epithelial Cell,Urine Occasional /HPF (0-10); Urine Color BLUE (Yellow); Urine Specific Gravity 1.015 (1.001-1.035); Urine Urobilinogen < 2.0 EU/DL (0.2-1.0); WBC,Urine 2 /HPF (0-6)
[2017-05-22 20:38] LABS: ABG Base Excess 2.6 MMOL/L (-2.5-2.5); ABG HCO3 33.8 MMOL/L (20-26); ABG Oxygen Saturation 93.9 % (95-100); ABG PO2 81.6 MM HG (80-95); ABG TCO2 36.7 MMOL/L (23-27); Allen Test Positive; Pt O2 Delivery Device BIPAP
[2017-05-22 20:43] LABS: ABG PCO2 92.3 MM HG (35-48); ABG PH 7.182 (7.35-7.45)
[2017-05-22] MEDS ORDERED: PROMETHAZINE 25 MG/1 ML VIAL IM PRN (23:07)
[2017-05-22] MEDS ORDERED: GLUCAGON 1 MG VIAL IM PRN (23:07)
[2017-05-22] MEDS ORDERED: DEXTROSE 50% 25 GM/50 ML VIAL IV PRN (23:07)
[2017-05-22] MEDS ORDERED: ACETAMINOPHEN 650 MG SUPP RECTAL PRN (23:07)
[2017-05-23] MEDS: ENOXAPARIN 150 MG/ML SYRINGE SUBCUT SCH ×3 (00:40→21:28)
[2017-05-23] MEDS: TRAVOPROST 0.004% OPH SOLN 2.5 ML BOTTLE BOTH EYES SCH ×2 (00:40→21:27)
[2017-05-23] MEDS: DOXYCYCLINE HYCLATE INJ 100 MG in SODIUM CHLORIDE 0.9% 100 ML IV SCH ×3 (01:25→23:41)
[2017-05-23] MEDS: INSULIN REGULAR 100 UNIT/ML SUBCUT SCH ×4 (01:28→18:11)
[2017-05-23 05:45] LABS: Basophils % 0.2 % (0.0-0.8); Immature Granulocytes % 0.6 %; Immature Granulocytes Absolute 0.03 #; Mean Corpuscular Hemoglobin 28 PG (27-34); Monocytes # 0.1 10*3/uL (0.11-0.8); Monocytes % 1.2 % (1.7-12.7)
[2017-05-23 06:06] LABS: Hematocrit 43.7 VOL% (35.7-47.0); Hemoglobin 12.7 GM/DL (12.0-16.0); Lymphocytes % 20.1 % (21.3-54.2); Mean Corpuscular HGB Conc 29.1 GM/DL (32-36); Mean Platelet Volume 10.1 FL (9.6-12.0); Neutrophils # 3.9 10*3/uL (1.4-7.4); Neutrophils % 77.9 % (38.7-73.9); Platelet Count 163 T/CUMM (130-400); Red Blood Count 4.55 MC/CUMM (3.8-5.5); Red Cell Distribution Width 16.6 % (9.3-17.3)
[2017-05-23] MEDS: LEVOTHYROXINE 100 MCG VIAL IV SCH (06:10)
[2017-05-23] MEDS: methylPREDNISolone SOD SUC 125 MG/2 ML VIAL IV SCH ×2 (06:10→18:12)
[2017-05-23 06:14] LABS: Band Neutrophils 2 % (0-10); Lymphocytes 14 % (20-55); Segmented Neutrophils 82 % (50-85); Total Cells Counted 100
[2017-05-23 06:15] LABS: Hypochromasia 1+
[2017-05-23 06:18] LABS: Microcytosis 1+
[2017-05-23 06:19] LABS: Platelet Estimate Adequate
[2017-05-23 06:24] LABS: Albumin 3.5 G/DL (3.4-5.0); Bilirubin,Total 0.4 MG/DL (0.2-1.0); Calcium 8.9 MG/DL (8.5-10.1); Potassium 3.9 MMOL/L (3.5-5.1); Thyroid Stimulating Hormone 1.71 uIU/ml (0.358-3.74); Total Protein 7.4 G/DL (6.4-8.3)
[2017-05-23] MEDS: ALBUTEROL/IPRATROPIUM 3 ML NEB RESP TX SCH ×6 (07:48→23:46)
[2017-05-23] MEDS: FUROSEMIDE 40 MG/4 ML VIAL IV SCH (09:27)
[2017-05-23] MEDS: cefTRIAXone 1,000 MG in SYRINGE 1 EACH IV SCH (09:35)
[2017-05-23] MEDS: ACETAMINOPHEN 325 MG TABLET PO PRN (21:29)
[2017-05-24] MEDS: INSULIN REGULAR 100 UNIT/ML SUBCUT SCH ×4 (00:12→17:43)
[2017-05-24] MEDS: ALBUTEROL/IPRATROPIUM 3 ML NEB RESP TX SCH ×6 (03:09→23:00)
[2017-05-24] MEDS: methylPREDNISolone SOD SUC 125 MG/2 ML VIAL IV SCH ×2 (06:33→17:43)
[2017-05-24] MEDS: LEVOTHYROXINE 100 MCG VIAL IV SCH (06:34)
[2017-05-24 08:13] LABS: ABG Base Excess 5.7 MMOL/L (-2.5-2.5); ABG HCO3 29.5 MMOL/L (20-26); ABG Oxygen Saturation 93.6 % (95-100); ABG PH 7.307 (7.35-7.45); ABG PO2 72.7 MM HG (80-95); Allen Test Positive
[2017-05-24 08:16] LABS: ABG PCO2 69.1 MM HG (35-48)
[2017-05-24] MEDS: FUROSEMIDE 40 MG/4 ML VIAL IV SCH (09:30)
[2017-05-24] MEDS: cefTRIAXone 1,000 MG in SYRINGE 1 EACH IV SCH (09:30)
[2017-05-24] MEDS: ENOXAPARIN 150 MG/ML SYRINGE SUBCUT SCH ×2 (09:33→20:27)
[2017-05-24] MEDS: DOXYCYCLINE HYCLATE INJ 100 MG in SODIUM CHLORIDE 0.9% 100 ML IV SCH (11:46)
[2017-05-24] MEDS: amLODIPine 10 MG TABLET PO SCH (13:45)
[2017-05-24] MEDS: THEOPHYLLINE ER (24 HR) 400 MG TABLET PO SCH (13:45)
[2017-05-24] MEDS: METHEN/SOD PHOS/METH BLUE/HYOS TABLET PO SCH ×2 (13:45→20:28)
[2017-05-24] MEDS: TRAVOPROST 0.004% OPH SOLN 2.5 ML BOTTLE BOTH EYES SCH (20:27)
[2017-05-24] MEDS: ACETAMINOPHEN 325 MG TABLET PO PRN (20:28)
[2017-05-24] MEDS: levETIRAcetam 500 MG TABLET PO SCH (20:28)
[2017-05-25] MEDS: DOXYCYCLINE HYCLATE INJ 100 MG in SODIUM CHLORIDE 0.9% 100 ML IV SCH ×2 (00:20→12:08)
[2017-05-25] MEDS: INSULIN REGULAR 100 UNIT/ML SUBCUT SCH ×4 (00:47→18:13)
[2017-05-25] MEDS: ALBUTEROL/IPRATROPIUM 3 ML NEB RESP TX SCH ×6 (03:20→22:27)
[2017-05-25 04:09] LABS: Allen Test Positive
[2017-05-25 04:12] LABS: ABG Base Excess 7.9 MMOL/L (-2.5-2.5); ABG HCO3 31.6 MMOL/L (20-26); ABG Oxygen Saturation 96.1 % (95-100); ABG PH 7.324 (7.35-7.45); ABG PO2 86.5 MM HG (80-95); ABG TCO2 32.9 MMOL/L (23-27)
[2017-05-25 04:14] LABS: ABG PCO2 70.5 MM HG (35-48)
[2017-05-25] MEDS: methylPREDNISolone SOD SUC 125 MG/2 ML VIAL IV SCH ×2 (05:55→18:14)
[2017-05-25] MEDS: LEVOTHYROXINE 125 MCG TABLET PO SCH (05:59)
[2017-05-25] MEDS ORDERED: LORazepam 2 MG/1 ML VIAL IV PRN (07:23)
[2017-05-25] MEDS ORDERED: METHEN/SOD PHOS/METH BLUE/HYOS TABLET PO SCH (09:00)
[2017-05-25] MEDS ORDERED: THEOPHYLLINE ER (24 HR) 400 MG TABLET PO SCH (09:00)
[2017-05-25] MEDS ORDERED: amLODIPine 10 MG TABLET PO SCH (09:00)
[2017-05-25] MEDS ORDERED: PARoxetine 20 MG TABLET PO SCH (09:00)
[2017-05-25] MEDS: FUROSEMIDE 40 MG/4 ML VIAL IV SCH (10:58)
[2017-05-25] MEDS: levETIRAcetam 500 MG TABLET PO SCH ×2 (10:58→21:08)
[2017-05-25] MEDS: acetaZOLAMIDE 250 MG TABLET PO SCH ×2 (10:58→21:08)
[2017-05-25] MEDS: busPIRone 5 MG TABLET PO SCH ×2 (10:58→21:08)
[2017-05-25] MEDS: PARoxetine 20 MG TABLET PO SCH (10:59)
[2017-05-25] MEDS: METOPROLOL TARTRATE 25 MG TABLET PO SCH (10:59)
[2017-05-25] MEDS: amLODIPine 10 MG TABLET PO SCH (10:59)
[2017-05-25] MEDS: ENOXAPARIN 150 MG/ML SYRINGE SUBCUT SCH ×2 (10:59→21:08)
[2017-05-25] MEDS: METHEN/SOD PHOS/METH BLUE/HYOS TABLET PO SCH ×2 (10:59→21:08)
[2017-05-25] MEDS: THEOPHYLLINE ER (24 HR) 400 MG TABLET PO SCH (11:00)
[2017-05-25] MEDS: cefTRIAXone 2,000 MG in SYRINGE 1 EACH IV SCH (11:02)
[2017-05-25] MEDS: ACETAMINOPHEN 325 MG TABLET PO PRN ×2 (12:09→21:48)
[2017-05-25] MEDS ORDERED: LORazepam 2 MG/1 ML VIAL IV ONE (12:25)
[2017-05-25] MEDS ORDERED: LORazepam 2 MG/1 ML VIAL ONE (12:28)
[2017-05-25] MEDS: TRAVOPROST 0.004% OPH SOLN 2.5 ML BOTTLE BOTH EYES SCH (21:08)
[2017-05-26] MEDS: INSULIN REGULAR 100 UNIT/ML SUBCUT SCH ×3 (00:16→12:07)
[2017-05-26] MEDS: DOXYCYCLINE HYCLATE INJ 100 MG in SODIUM CHLORIDE 0.9% 100 ML IV SCH ×2 (00:24→13:33)
[2017-05-26] MEDS: ACETAMINOPHEN 325 MG TABLET PO PRN ×2 (01:55→13:32)
[2017-05-26] MEDS: ALBUTEROL/IPRATROPIUM 3 ML NEB RESP TX SCH ×3 (03:15→10:05)
[2017-05-26 03:16] LABS: ABG Base Excess 7.8 MMOL/L (-2.5-2.5); ABG HCO3 31.5 MMOL/L (20-26); ABG Oxygen Saturation 93.1 % (95-100); ABG PCO2 58.6 MM HG (35-48); ABG PH 7.383 (7.35-7.45); ABG PO2 67.5 MM HG (80-95); ABG TCO2 31.3 MMOL/L (23-27); Allen Test Positive
[2017-05-26] MEDS ORDERED: LEVOTHYROXINE 125 MCG TABLET PO SCH (06:00)
[2017-05-26] MEDS: LEVOTHYROXINE 125 MCG TABLET PO SCH (06:14)
[2017-05-26] MEDS: methylPREDNISolone SOD SUC 125 MG/2 ML VIAL IV SCH (06:14)
[2017-05-26] MEDS: cefTRIAXone 2,000 MG in SYRINGE 1 EACH IV SCH (09:36)
[2017-05-26] MEDS: FUROSEMIDE 40 MG/4 ML VIAL IV SCH (09:37)
[2017-05-26] MEDS: METHEN/SOD PHOS/METH BLUE/HYOS TABLET PO SCH (09:37)
[2017-05-26] MEDS: THEOPHYLLINE ER (24 HR) 400 MG TABLET PO SCH (09:37)
[2017-05-26] MEDS: METOPROLOL TARTRATE 25 MG TABLET PO SCH (09:37)
[2017-05-26] MEDS: busPIRone 5 MG TABLET PO SCH (09:37)
[2017-05-26] MEDS: acetaZOLAMIDE 250 MG TABLET PO SCH (09:37)
[2017-05-26] MEDS: PARoxetine 20 MG TABLET PO SCH (09:37)
[2017-05-26] MEDS: amLODIPine 10 MG TABLET PO SCH (09:37)
[2017-05-26] MEDS: levETIRAcetam 500 MG TABLET PO SCH (09:37)
[2017-05-26] MEDS: ENOXAPARIN 150 MG/ML SYRINGE SUBCUT SCH (09:38)
[2017-05-26 17:44] VITALS: BP 140/88
[2017-05-26] MEDS ORDERED: DOXYCYCLINE HYCLATE 100 MG CAPSULE PO SCH (21:00)
[2017-05-31] MEDS ORDERED: cloNIDine 0.2 MG/24 HR PATCH TRANSDERM SCH (08:21)
== END 2017-05-26 17:00 | DRG 193 ==
LOC: EDUNIT# → N.ED 17:08 → SUATTDRO 20:04 → N.EDINP 20:04 → N.TELES 21:40 → N.5E 05-23 16:42
PROVIDERS: ADMIT Family Medicine; ATTEND Hospitalist